=== PATIENT | male | born 1940 | race Caucasian/White ===

== ENCOUNTER 2020-09-19 13:06 | Emergency (ER) | payer OTHER ==
[2020-09-19 13:10] VITALS: BP 163/79; PULSE 64; TEMP 97.8; BMI 27.0
[2020-09-19 14:40] LABS: BASO % 0.5 % (0-2.0); EOS % 1.4 % (0-4.5); HEMATOCRIT 41.3 % (35.4-49); LYMPH % 22.2 % (8-40); MCH 30.9 pg (25.7-33.7); MCHC 33.8 g/dl (32.0-35.9); MEAN CELL VOLUME 91.3 fl (80-96); MONO % 10.3 % (3.8-10.2); NEUT % 65.6 % (42.8-82.8); PLATELET COUNT 245 K/MM3 (134-434); RBC 4.52 M/mm3 (4.00-5.60); RDW 13.4 % (11.9-15.9); WHITE BLOOD COUNT 8.9 K/mm3 (4.0-10.0)
[2020-09-19 14:42] LABS: EPI CELLS 4 /uL (0-25.1); HYALINE CASTS 0 /uL (0-3.1); URINE APPEARANCE CLEAR; URINE BACTERIA 5 /uL (0-1359); URINE BILIRUBIN NEGATIVE (NEGATIVE); URINE COLOR YELLOW; URINE GLUCOSE (UA) NEGATIVE (NEGATIVE); URINE KETONE NEGATIVE (NEGATIVE); URINE LEUK ESTERASE NEGATIVE (NEGATIVE); URINE NITRITE NEGATIVE (NEGATIVE); URINE PROTEIN NEGATIVE (NEGATIVE); URINE RBC 12 /uL (0-23.9); URINE UROBILINOGEN 0.2 mg/dL (0.2-1.0); URINE WBC 8 /uL (0-25.8)
[2020-09-19 14:51] LABS: POTASSIUM 4.1 mmol/L (3.5-5.1)
[2020-09-19 14:53] LABS: ALBUMIN 3.6 g/dl (3.4-5.0); BLOOD UREA NITROGEN 36.3 mg/dL (7-18); CALCIUM 8.8 mg/dL (8.5-10.1)
[2020-09-19 14:57] LABS: CREATININE 1.2 mg/dL (0.55-1.3)
[2020-09-19 14:58] LABS: BILIRUBIN,TOTAL 0.6 mg/dL (0.2-1)
[2020-09-19] MEDS ORDERED: CEPHALEXIN MONOHYDRATE 500 MG CAPSULE (UD) PO ONE (15:07)
[2020-09-19] MEDS ORDERED: CEPHALEXIN MONOHYDRATE 500 MG CAPSULE (UD) ONE (15:11)
== END 2020-09-19 15:18 | disposition home or self-care (01) ==
LOC: JER 13:06
DX: N39.0 Urinary tract infection, site not specified (principal); R31.9 Hematuria, unspecified
CPT/HCPCS: 36415; 80053; 81003; 85025; 87086; 99283-25

== ENCOUNTER 2022-07-25 11:12 | Emergency (ER) | payer OTHER ==
[2022-07-25 11:23] VITALS: BP 166/82; PULSE 61; RESP 18; TEMP 98; BMI 26.4
[2022-07-25 13:35] LABS: EPI CELLS >36 /uL (0-25.1); HYALINE CASTS 1 /uL (0-3.1); URINE APPEARANCE TURBID; URINE BACTERIA 0 /uL (0-1359); URINE BILIRUBIN NEGATIVE (NEGATIVE); URINE COLOR ORANGE; URINE GLUCOSE (UA) NEGATIVE (NEGATIVE); URINE KETONE NEGATIVE (NEGATIVE); URINE LEUK ESTERASE 1+ (NEGATIVE); URINE NITRITE NEGATIVE (NEGATIVE); URINE PROTEIN 2+ (NEGATIVE); URINE RBC 5490 /uL (0-23.9); URINE WBC 63 /uL (0-25.8)
[2022-07-25 13:36] LABS: BASO % 1.2 % (0-2.0); EOS % 1.8 % (0-4.5); HEMATOCRIT 39.5 % (35.4-49); HEMOGLOBIN 13.3 GM/dL (11.7-16.9); LYMPH % 29.2 % (8-40); MCH 30.3 pg (25.7-33.7); MCHC 33.7 g/dl (32.0-35.9); MEAN PLT VOLUME 8.3 fl (7.5-11.1); MONO % 9.8 % (3.8-10.2); PLATELET COUNT 242 10^3/uL (134-434); RBC 4.39 M/mm3 (4.00-5.60); RDW 14.1 % (11.9-15.9); WHITE BLOOD COUNT 7.7 K/mm3 (4.0-10.0)
[2022-07-25 13:40] LABS: INR 1.06 (0.83-1.09); PROTHROMBIN TIME (PATIENT) 12.2 SEC (9.7-13.0)
[2022-07-25 13:42] LABS: ACTIVATED PTT 31.7 SECONDS (25.2-36.5)
[2022-07-25 14:07] LABS: CALCIUM 9.4 mg/dL (8.5-10.1)
[2022-07-25 14:08] LABS: ALBUMIN 3.6 g/dl (3.4-5.0)
[2022-07-25 14:11] LABS: CREATININE 1.5 mg/dL (0.55-1.3)
[2022-07-25 14:13] LABS: BILIRUBIN,TOTAL 0.6 mg/dL (0.2-1)
== END 2022-07-25 15:11 | disposition home or self-care (01) ==
LOC: JER 11:12
DX: R31.9 Hematuria, unspecified (principal)
CPT/HCPCS: 36415; 80053; 81003; 85025; 85610; 85730; 99283-25

== ENCOUNTER 2023-03-28 07:25 | Emergency (ER) | payer OTHER ==
[2023-03-28 07:33] VITALS: BP 146/75; PULSE 60; RESP 18; TEMP 97.6; BMI 26.0
[2023-03-28] MEDS ORDERED: VANCOMYCIN/WATER 1,250 MG/250 ML BAG (RESTRICTED TO ID ONLY) IVPB ONE (08:48)
[2023-03-28 09:06] LABS: BASO % 0.8 % (0-2.0); EOS % 1.1 % (0-4.5); HEMOGLOBIN 13.2 GM/dL (11.7-16.9); LYMPH % 26.1 % (8-40); MCH 30.2 pg (25.7-33.7); MCHC 33.8 g/dl (32.0-35.9); MEAN CELL VOLUME 89.2 fl (80-96); MEAN PLT VOLUME 9.2 fl (7.5-11.1); MONO % 8.9 % (3.8-10.2); NEUT % 63.1 % (42.8-82.8); PLATELET COUNT 233 10^3/uL (134-434); RBC 4.37 M/mm3 (4.00-5.60); RDW 13.5 % (11.9-15.9); WHITE BLOOD COUNT 7.5 K/mm3 (4.0-10.0)
[2023-03-28 09:09] LABS: INR 1.11 (0.83-1.09); PROTHROMBIN TIME (PATIENT) 12.9 SEC (9.7-13.0)
[2023-03-28 09:35] LABS: CHLORIDE 112 mmol/L (98-107); SODIUM 139 mmol/L (136-145)
[2023-03-28 09:37] LABS: ALBUMIN 3.4 g/dl (3.4-5.0); CALCIUM 8.5 mg/dL (8.5-10.1); CO2 24 mmol/L (21-32)
[2023-03-28 09:38] LABS: BLOOD UREA NITROGEN 43.7 mg/dL (7-18); GLUCOSE,RANDOM 99 mg/dL (74-106)
[2023-03-28 09:40] LABS: SGPT/ALT 28 U/L (13-61)
[2023-03-28 09:41] LABS: CREATININE 1.4 mg/dL (0.55-1.3); SGOT/AST 58 U/L (15-37)
[2023-03-28 09:42] LABS: BILIRUBIN,TOTAL 0.8 mg/dL (0.2-1); TOT PROT 6.9 g/dl (6.4-8.2)
[2023-03-28 09:44] LABS: ALK PHOS 79 U/L (45-117)
[2023-03-28 09:45] LABS: ANION GAP 3 MMOL/L (8-16); POTASSIUM 6.3 mmol/L (3.5-5.1)
[2023-03-28] MEDS ORDERED: SODIUM CHLORIDE 500 ML IV STA (09:54)
[2023-03-28 11:40] LABS: POTASSIUM 4.6 mmol/L (3.5-5.1)
[2023-03-28 11:42] LABS: BLOOD UREA NITROGEN 42.2 mg/dL (7-18); CALCIUM 8.6 mg/dL (8.5-10.1)
[2023-03-28 11:46] LABS: CREATININE 1.3 mg/dL (0.55-1.3)
== END 2023-03-28 14:00 | disposition home or self-care (01) ==
LOC: JER 07:25
PROC: 3E03329 Introduction of Other Anti-infective into Peripheral Vein, Percutaneous Approach (ICD-10-PCS; principal; 2023-03-28)
PROC: 3E0337Z Introduction of Electrolytic and Water Balance Substance into Peripheral Vein, Percutaneous Approach (ICD-10-PCS; 2023-03-28)
DX: L02.414 Cutaneous abscess of left upper limb (principal)
CPT/HCPCS: 36415; 76882-TC-RT-FY; 80048; 80053; 85025; 85610; 87070; 87205; 99284-25

== ENCOUNTER 2024-02-29 07:17 | Emergency (ER) | payer OTHER ==
[2024-02-29 07:37] VITALS: BMI 26.7
[2024-02-29 08:37] LABS: URINE APPEARANCE CLEAR; URINE BILIRUBIN NEGATIVE (NEGATIVE); URINE COLOR YELLOW; URINE GLUCOSE (UA) NEGATIVE (NEGATIVE); URINE KETONE NEGATIVE (NEGATIVE); URINE LEUK ESTERASE NEGATIVE (NEGATIVE); URINE NITRITE NEGATIVE (NEGATIVE); URINE PROTEIN NEGATIVE (NEGATIVE); URINE UROBILINOGEN 0.2 mg/dL (0.2-1.0)
[2024-02-29 08:53] VITALS: TEMP 98.7
[2024-02-29 09:20] VITALS: BP 125/66; PULSE 52; RESP 17
== END 2024-02-29 09:49 | disposition home or self-care (01) ==
LOC: JER 07:17
DX: R30.0 Dysuria (principal); R35.0 Frequency of micturition
CPT/HCPCS: 81003; 87086; 99284-25

== ENCOUNTER 2024-09-04 11:53 | Emergency (ER) | payer OTHER ==
[2024-09-04 12:19] VITALS: TEMP 98.1; BMI 27.8
[2024-09-04 14:02] VITALS: BP 153/77; PULSE 65; RESP 16
== END 2024-09-04 12:40 | disposition home or self-care (01) ==
LOC: FER 11:53
DX: G51.0 Bell's palsy (principal)
CPT/HCPCS: 99283-25